=== PATIENT | male | born 1950 | race Caucasian/White ===

== ENCOUNTER 2024-05-03 11:24 | Emergency (ER) | payer OTHER, MEDICARE, SELFPAY ==
[2024-05-03 11:28] VITALS: BP 168/86; PULSE 102; RESP 18; TEMP 36.7; O2SAT 99
--- NOTE | 2024-05-03 11:51 | CT_ITS ---
STUDY: CT BRAIN WITHOUT CONTRAST REASON FOR EXAM: Male, 74 years old. Headache. Blurry vision. RADIATION DOSAGE (If Supplied By Facility): CTDIvol = ( 44.99 ) mGy, DLP = ( 846.73 ) mGycm TECHNIQUE: Transaxial CT imaging of the brain was performed without administration of intravenous contrast material. Individualized dose optimization techniques were used for this CT. COMPARISON: No relevant priors. FINDINGS: Normal soft tissue structures. Normal calvarium. There is mild cerebral atrophy with widening of the extra-axial spaces and ventricular dilatation. Normal white matter tracts of the cerebral hemispheres. Normal basal ganglia and thalami. Normal brainstem. Normal cerebellum. There is no intracranial hemorrhage. There are no findings of an acute ischemic infarction. Atherosclerotic plaque formation of the cavernous portions of the internal carotid arteries bilaterally. Normal visualized paranasal sinuses. CT/Brain/Head without Contrast IMPRESSION: Chronic involutional changes of the brain. Electronically Signed: Sudarshan Scott MD at 13:07 EST ,
--- NOTE | 2024-05-03 11:51 | EKG12_ITS ---
Test Reason : Blood Pressure : */* mmHG Vent. Rate : 95 BPM Atrial Rate : 95 BPM P-R Int : 200 ms QRS Dur : 106 ms QT Int : 328 ms P-R-T Axes : 44 -20 32 degrees QTcB Int : 412 ms Normal sinus rhythm Normal ECG Confirmed by JAMES GONZALEZ, LUAN ([id number]), primer expeditor and drier BRODIE RODRIGUEZ ([id number]) on 05/04/2024 8:15:13 AM Referred By: KENN Confirmed By: LUAN RAMIREZ MD
--- NOTE | 2024-05-03 11:52 | EX.ED.DYSGE1 ---
HPI History of Present Illness Chief Complaint: Neuro S/Sx Informant: patient Narrative Narrative: Sent from urgent care I spoke with physician prior to his arrival. Flulike symptoms starting Friday. However he reported periorbital numbness and tingling to his right second and fourth digits. He has history of TIA. On arrival patient confirms any symptoms. Fever since Friday nonproductive cough. Worsening nontraumatic frontal headache. He had a TIA years ago he states affected 1 side that was numbness maybe a little weakness with no residual deficits. Patient is on doxycycline for rosacea. Denies nausea vomiting or diarrhea. Denies urinary symptoms. No medications taken for fevers. Reported temp of 100.7 at [facility]. Here he is afebrile. Reported is at home recovering from pneumonia. Denies myalgias. [facility] Medical History (Updated 05/03/24 @ 13:[address] Danilo Xiao, DO) TIA (transient ischemic attack) Glaucoma Home Medications ?Medication ?Instructions ?Recorded ?Last Taken ?Type doxycycline monohydrate 50 mg 50 mg PO DAILY 05/03/24 Unknown History capsule lisinopril 10 mg tablet 10 mg PO DAILY 05/03/24 Unknown History Allergy/AdvReac Type Severity Reaction Status Date / Time No Known Allergies Allergy Verified 05/03/24 11:33 Surgical History (Updated 05/03/24 @ 12:06 by Lanny Marie) History of back surgery Social History Smoking Status: Unknown if ever smoked ROS [facility] ED Constitutional Constitutional ED: Reports fever(s); Denies chills or sweats Eyes Eyes: Denies change in vision ENT ENT ED: Denies dysphagia or sore throat Cardiovascular Cardiovascular: Denies chest pain, leg edema, palpitations or racing heartbeat Respiratory/Chest Respiratory/Chest: Reports cough; Denies dyspnea or dyspnea on exertion Gastrointestinal Gastrointestinal: Denies abdominal pain, diarrhea, nausea or vomiting Genitourinary Genitourinary ED: Denies dysuria, hematuria or urinary frequency Musculoskeletal Musculoskeletal: Denies back pain, extremity pain or neck pain Integumentary Denies rash or wounds Neurologic Neurologic: Reports headache(s); Denies paresthesias or weakness EXAM Physical Exam Const Vital Signs: 05/03/24 11:28 05/03/24 13:13 Temperature 98.1 F Temperature Source Oral Pulse Rate 102 H Respiratory Rate 18 Blood Pressure 168/86 H 142/82 H Blood Pressure Mean 113 102 Pulse Ox 99 Oxygen Delivery Method Room Air Positive well nourished and well developed General Appearance ED: well developed and NAD HEENT Reports moist mucous membranes normocephalic and atraumatic Eyes EOMs intact bilaterally and conjunctivae normal General Eye ED: Yes normal appearance of both eyes Neck no lymphadenopathy and supple Neck Narrative: No meningismus. Negative Spurling's test bilaterally. General: Negative for tenderness Chest Wall Chest: Negative for tenderness Resp normal respiratory effort and normal air movement Effort and Inspection: symmetric chest movement; Negative for respiratory distress Cardio regular rate, regular rhythm and no murmurs Peripheral Pulses: pulses 2+ throughout GI normal to inspection, nondistended, normoactive bowel sounds and non-tender Palpation: Negative for guarding or rebound tenderness present Back/Spine no CVA tenderness and no thoracic nor lumbar tenderness Extremity normal to inspection General Extremety ED: Negative for edema or tenderness General Extremity: Negative for edema Neuro oriented x3, CN's II-XII intact bilaterally and no sensory deficits noted Neuro Narrative: NIH 0. Sensorium / Orientation: awake and alert Skin no rashes or lesions noted and no wounds MDM MDM MDM Narrative Medical decision making narrative: Interventions / MDM: Differential diagnosis: Influenza, nonspecific paresthesias Diagnosis considered but do not suspect: Intracranial hemorrhage however CT negative. Pneumonia however chest x-ray negative. My EKG interpretation: Sinus rate of 95, no ST or T wave changes. Imaging independently reviewed and interpreted by myself: CT brain: No acute process. Two-view chest x-ray: No acute process. External documents reviewed: N/A Test considered but not ordered:N/A ED course: Afebrile NIH 0. Reported perioral numbness this is not asymmetric and one-sided. Lower concerns or suspicion for stroke symptoms. With his headache I will obtain a CT. Will check labs and chest x-ray. Will send for viral swabs. 1350: Labs stable. CT brain chest x-ray negative. Influenza A positive. Patient within 72 hours symptoms. I discussed treatment with Tamiflu however he declines. Reassured on findings. Discussed Tylenol as needed discussed continue oral fluids for hydration. Outpatient follow-up with a doctor. Discussed return precautions. All questions were answered. Re-evaluation: stable Disposition discussed with patient/family/significant other: Patient and family Case discussed with consulting clinician: N/A This note was generated with [employer] dictation software. It may contain incorrect words, spelling, and punctuation that were not noted in checking the note before signing. Lab Data Attestation: I reviewed the patient's lab results. Labs: Laboratory Results - last 24 hr 05/03/24 05/03/24 12:00 12:10 WBC 5.4 RBC 4.77 Hgb 14.5 Hct 43.4 MCV 91.0 MCH 30.4 MCHC 33.4 RDW Std Deviation 43.9 RDW Coeff of Deana 13.1 Plt Count 166 MPV 10.0 Immature Gran % (Auto) 0.400 Neut % (Auto) 84.7 H Lymph % (Auto) 6.6 L Hubbard % (Auto) 6.3 Eos % (Auto) 1.8 Baso % (Auto) 0.2 Absolute Neuts (auto) 4.6 Absolute Lymphs (auto) 0.36 L Nucleated RBC % 0 Sodium 138 Potassium 4.3 Chloride 106 Carbon Dioxide 27.0 Anion Gap 5 BUN 16 Creatinine 1.23 Estim Creat Clear Calc 71.41 Est GFR (MDRD) Af Amer 74 Est GFR (MDRD) Non-Af 61 BUN/Creatinine Ratio 13.0 Glucose 109 H Calcium 9.0 POC Glucose 109 H Radiography Diagnostic Testing: Clinical Impression(s) from Imaging Studies Brain CT 05/03/24 11:51 IMPRESSION: Chronic involutional changes of the brain. Electronically Signed: Sudarshan Scott MD at 13:07 EST , Chest X-Ray 05/03/24 12:20 IMPRESSION: No acute abnormality is seen. Electronically Signed: Sudarshan Scott MD at 12:52 EST , Discharge Plan Triage Chief Complaint: Neuro S/Sx ED Provider: Danilo Xiao Dx/Rx/DC Orders Clinical Impression: Influenza A, Headache, Cough Instructions: Self-Care for Headaches, The Flu (Influenza), ED Headache Unspecified Prescriptions: No Action doxycycline monohydrate 50 mg capsule 50 mg PO DAILY lisinopril 10 mg tablet 10 mg PO DAILY Primary Care Provider: Lex Ramires Referrals: Lex Ramires MD [Primary Care Provider] - 1 Week Activity Restrictions/Additional Instructions: CT brain negative chest x-ray negative. Blood work normal. Nasal swab positive for influenza A. Continue oral fluids, Tylenol as needed for headaches. Follow-up with your doctor. Print Language: Kiswahili Disposition Disposition: Home, Self Care Discharge Date/Time: 05/03/24 14:03
[2024-05-03 12:05] VITALS: BMI 33.7
[2024-05-03 12:07] VITALS: BMI 33.7
[2024-05-03 12:13] LABS: Absolute Lymphocyte Count 0.36 X10^3/uL (0.83-4.51); Absolute Neutrophil Count 4.6 X10^3/uL (2.0-7.7); Basophil# 0.01 X10^3/uL; Basophil% 0.2 % (0-1); Eosinophils% 1.8 % (0-5); Hematocrit 43.4 % (40-54); Hemoglobin 14.5 g/dL (13.0-16.5); Lymphocyte # 0.36 X10^3/ul (0.83-4.51); Lymphocyte % 6.6 % (19-41); Mean Corp Hgb Conc 33.4 g/dL (32-36); Mean Corpuscular Hgb 30.4 pg (27.0-32.0); Monocyte# 0.34 X10^3/uL; Monocyte% 6.3 % (0-10); NRBC Flagged by Analyzer 0 % (0-5); Neutrophil # 4.59 X10^3/uL (2.7-7.7); Neutrophil % 84.7 % (47-70); POSITIVE DIFFERENTIAL YES; Platelet Count 166 K/mm3 (150-450); RBC Distribution Width CV 13.1 % (11.6-14.6); RBC Distribution Width SD 43.9 fl (35.1-43.9); Red Blood Count 4.77 M/mm3 (4.6-6.2); White Blood Count 5.4 K/mm3 (4.4-11.0)
--- NOTE | 2024-05-03 12:20 | RAD_ITS ---
STUDY: X-RAY CHEST REASON FOR EXAM: Male, 74 years old. Cough, fever and shortness of breath. TECHNIQUE: PA and lateral views of the chest. COMPARISON: None. FINDINGS: The lungs are clear and expanded. There is no demonstrated pleural abnormality. Normal size heart. Normal mediastinum and kyra. Normal visualized pulmonary arteries. There is atherosclerotic calcification of the aortic arch with tortuosity. There are diffuse degenerative changes of the visualized thoracic spine. Normal visualized ribs, clavicles, and shoulders. There is no demonstrated abnormality of the visualized soft tissue structures of the upper abdomen. RAD/Chest PA and Lateral IMPRESSION: No acute abnormality is seen. Electronically Signed: Sudarshan Scott MD at 12:52 EST ,
[2024-05-03 12:28] LABS: Anion Gap 5 (5-15); BUN 16 mg/dL (7-18); Chloride 106 mmol/L (98-107); Creatinine, Serum 1.23 mg/dL (0.70-1.30); EST Glomerular Filtration Rate 61 mL/min (>60); Est Glom Filt Rate - Afr Amer 74 mL/min (>60); Estimated Creatinine Clearance 71.41 ml/min; Glucose 109 mg/dL (74-106); Potassium 4.3 mmol/L (3.5-5.1); Sodium Level 138 mmol/L (136-145)
[2024-05-03 12:30] LABS: Bedside Glucose 109 mg/dL (74-106)
[2024-05-03 13:13] VITALS: BP 142/82
[2024-05-03 14:00] VITALS: BP 153/98
== END 2024-05-03 14:03 | disposition home or self-care (01) ==
PROVIDERS: Emergency Provider Emergency Medicine; PCP Family Medicine; Visit Provider Emergency Medicine
DX: J10.1 Influenza due to other identified influenza virus with other respiratory manifestations (principal); R51.9 Headache, unspecified; R05.9 Cough, unspecified; Z86.73 Personal history of transient ischemic attack (TIA), and cerebral infarction without residual deficits
CPT/HCPCS: 70450; 71046; 80048; 82962; 85025; 87631; 93005; 99283; A4216